=== PATIENT | female | born 1960 | race American Indian/Alaskan Native ===

== ENCOUNTER 2019-01-08 06:06 | Emergency (ER) | payer MEDICAID ==
--- NOTE | 2019-01-08 07:31 | Emergency Department Report ---
ED Extremity Problem HPI - General Chief complaint: Extremity Injury, Lower Stated complaint: LEG PAIN Source: patient, EMS Mode of arrival: Wheelchair Limitations: No Limitations - History of Present Illness Initial comments: 59yo F states that she has been walking a lot lately and her leg pain increases with walking. Pt states that she also has an acute cough for a about a week. Pt further states that she is HIV positive but can not remember her HIV medication. MD Complaint: extremity pain -: Gradual Time: 08:21 Location: right, lower extremity -: Yes myalgia Radiation: distal Severity scale (0 -10): 9 Quality: aching Consistency: intermittent Improves with: nothing Worsens with: walking - Related Data Previous Rx's Medication Instructions Recorded Last Taken Type Aspirin 325 mg PO QDAY #30 tablet 08/14/15 Unknown Rx Simvastatin [Zocor TAB] 10 mg PO QHS #30 tablet 08/14/15 Unknown Rx hydroCHLOROthiazide [HCTZ] 25 mg PO QDAY #30 tablet 08/14/15 Unknown Rx DOXYCYCLINE Hyclate [Vibramycin 100 mg PO Q12HR #10 capsule 01/08/19 Unknown Rx CAP] Allergies Allergy/AdvReac Type Severity Reaction Status Date / Time No Known Allergies Allergy Verified 02/18/14 05:47 ED Review of Systems ROS: Stated complaint: LEG PAIN Other details as noted in HPI Comment: All other systems reviewed and negative Constitutional: weakness Eyes: denies: eye pain, eye discharge, vision change ENT: denies: ear pain, throat pain Respiratory: cough. denies: shortness of breath, wheezing Cardiovascular: denies: chest pain, palpitations Endocrine: no symptoms reported Gastrointestinal: denies: abdominal pain, nausea, diarrhea Genitourinary: denies: urgency, dysuria, discharge Musculoskeletal: denies: back pain, joint swelling, arthralgia Skin: denies: rash, lesions Neurological: denies: headache, weakness, paresthesias Psychiatric: denies: anxiety, depression Hematological/Lymphatic: denies: easy bleeding, easy bruising ED Past Medical Hx - Past Medical History Previous Medical History?: Yes Hx Hypertension: Yes Hx Diabetes: Yes Hx Arthritis: Yes (back surgery) Hx Asthma: Yes Hx HIV: Yes - Surgical History Past Surgical History?: Yes Additional Surgical History: tubal ligation 20 years ago - Social History Smoking Status: Former Smoker Substance Use Type: None - Medications Home Medications: Home Medications Medication Instructions Recorded Confirmed Last Taken Type Aspirin 325 mg PO QDAY #30 tablet 08/14/15 Unknown Rx Simvastatin [Zocor TAB] 10 mg PO QHS #30 tablet 08/14/15 Unknown Rx hydroCHLOROthiazide [HCTZ] 25 mg PO QDAY #30 tablet 08/14/15 Unknown Rx DOXYCYCLINE Hyclate [Vibramycin 100 mg PO Q12HR #10 capsule 01/08/19 Unknown Rx CAP] ED Physical Exam - General Limitations: No Limitations General appearance: alert, in no apparent distress - Head Head exam: Present: atraumatic, normocephalic - Eye Eye exam: Present: normal appearance - ENT ENT exam: Present: mucous membranes moist - Neck Neck exam: Present: normal inspection - Respiratory Respiratory exam: Present: normal lung sounds bilaterally, respiratory distress, rhonchi, other (increased work breathing) - Cardiovascular Cardiovascular Exam: Present: regular rate, normal rhythm. Absent: systolic murmur, diastolic murmur, rubs, gallop - GI/Abdominal GI/Abdominal exam: Present: soft, normal bowel sounds - Rectal Rectal exam: Present: deferred - Extremities Exam Extremities exam: Present: normal inspection - Expanded Lower Extremity Exam Right Hip exam: Present: tenderness (tenderness of the R lateral hip and thigh) Knee exam: Present: normal inspection Lower Leg exam: Present: normal inspection - Back Exam Back exam: Present: normal inspection ED Course Vital Signs 01/08/19 01/08/19 06:14 10:26 Temperature 97.6 F Pulse Rate 75 71 Respiratory 18 16 Rate Blood Pressure 150/100 Blood Pressure 146/94 [Left] O2 Sat by Pulse 95 96 Oximetry ED Medical Decision Making - Medical Decision Making 59yo F states that she has been walking a lot lately and her leg pain increases with walking. Pt states that she also has an acute cough for a about a week. Pt further states that she is HIV positive but can not remember her HIV medication. An xray and labs were obtained to rule out pneumonia and muscle rhabdomyolis. Chest X-ray results are listed below. Pt was treated preemptively for pneumonia due to presentation. The CK lab result was 360, pt was instructed to increase fluids. Patient: DALE MESSER MR#: [id number] 2 : 1960 Acct:[id number] Age/Sex: 59 / F ADM Date: 01/08/19 Loc: ED Attending Dr: Ordering Physician: EARNESTINE GRIFFITHS PA-C Date of Service: 01/08/19 Procedure(s): XR chest routine 2V Accession Number(s): [id number] cc: EARNESTINE GRIFFITHS PA-C Fluoro Time In Minutes: CHEST 2 VIEWS INDICATION: cough. COMPARISON: 02/21/2014 FINDINGS: Support devices: None. Heart: Within normal limits. Lungs/pleura: No acute air space or interstitial disease. No pneumothorax. Additional findings: None. IMPRESSION: 1. No acute findings. Signer Name: Prashant Valerio MD Signed: 01/08/2019 8:50 AM Workstation Name: [id number] Transcribed By: JHONNY Dictated By: Prashant Valerio MD Electronically Authenticated By: Prashant Valerio MD Signed Date/Time: 01/08/19 0850 Critical care attestation.: If time is entered above; I have spent that time in minutes in the direct care of this critically ill patient, excluding procedure time. ED Disposition Clinical Impression: Myalgia, Pneumonia Disposition: DC-01 TO HOME OR SELFCARE Is pt being admited?: No Does the pt Need Aspirin: No Condition: Stable Instructions: Community-acquired Pneumonia (ED), Bacterial Pneumonia (ED) Additional Instructions: Pt was treated preemptively for pneumonia due to presentation. Pt was informed to increase fluids due to muscle pain. Pt was also informed to f/u with primary care for med refills. See ER if conditions worsen or if new emergent conditions arise. Prescriptions: DOXYCYCLINE Hyclate [Vibramycin CAP] 100 mg PO Q12HR #10 capsule Referrals: PRIMARY CAREMD [Primary Care Provider] - 3-5 Days Time of Disposition: 10:04
--- NOTE | 2019-01-08 08:54 | XRay Report ---
CHEST 2 VIEWS INDICATION: cough. COMPARISON: 02/21/2014 FINDINGS: Support devices: None. Heart: Within normal limits. Lungs/pleura: No acute air space or interstitial disease. No pneumothorax. Additional findings: None. IMPRESSION: 1. No acute findings. Signer Name: Prashant Valerio MD Signed: 01/08/2019 8:50 AM Workstation Name: [id number]
[2019-01-08 10:27] VITALS: BP 146/94
== END 2019-01-08 10:26 | disposition home or self-care (01) ==
LOC: ED 06:06
DX: J18.9 Pneumonia, unspecified organism (principal); M79.10 Myalgia, unspecified site; Z21 Asymptomatic human immunodeficiency virus [HIV] infection status; I10 Essential (primary) hypertension; E11.9 Type 2 diabetes mellitus without complications; J45.909 Unspecified asthma, uncomplicated; Z79.82 Long term (current) use of aspirin; Z79.899 Other long term (current) drug therapy; Z98.51 Tubal ligation status; Z87.891 Personal history of nicotine dependence
CPT/HCPCS: 36415; 71046; 82550; 99284